=== PATIENT | female | born 2005 | race Caucasian/White ===

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

== ENCOUNTER 2023-08-01 22:12 | Emergency (ER) | payer OTHER ==
[2023-08-01 22:30] VITALS: BP 119/67; PULSE 60; RESP 18; TEMP 98.7; BMI 23.0
[2023-08-01] MEDS ORDERED: ACETAMINOPHEN 500 MG TABLET (FP) PO ONE (23:37)
[2023-08-01] MEDS ORDERED: ACETAMINOPHEN 325 MG TABLET (FP) ONE (23:44)
[2023-08-01 23:48] LABS: URINE APPEARANCE CLEAR; URINE BILIRUBIN NEGATIVE (NEGATIVE); URINE COLOR YELLOW; URINE GLUCOSE (UA) NEGATIVE (NEGATIVE); URINE KETONE NEGATIVE (NEGATIVE); URINE LEUK ESTERASE NEGATIVE (NEGATIVE); URINE NITRITE NEGATIVE (NEGATIVE); URINE PROTEIN NEGATIVE (NEGATIVE)
== END 2023-08-02 02:58 | disposition home or self-care (01) ==
LOC: JER 22:12
DX: R51.9 Headache, unspecified (principal); R55 Syncope and collapse; W01.198A Fall on same level from slipping, tripping and stumbling with subsequent striking against other object, initial encounter; U07.1 COVID-19
CPT/HCPCS: 0241U-QW; 70450-TC; 72125-TC; 81003; 82962; 84703; 87086; 93005; 93010; 99285-25

== ENCOUNTER 2025-03-12 09:53 | Emergency (ER) | payer OTHER ==
[2025-03-12 09:58] VITALS: BP 109/74; PULSE 99; RESP 20; TEMP 98.4; BMI 24.7
[2025-03-12] MEDS ORDERED: ACETAMINOPHEN 325 MG TABLET (FP) ONE (11:19)
[2025-03-12] MEDS ORDERED: DIPHTH,PERTUSS(ACELL),TET 0.5 ML DISP.SYRIN IM ONE (11:19)
[2025-03-12] MEDS: ACETAMINOPHEN 325 MG TABLET (FP) PO ONE (11:32)
[2025-03-12] MEDS: DIPHTH,PERTUSS(ACELL),TET 0.5 ML DISP.SYRIN IM ONE (11:33)
== END 2025-03-12 14:09 | disposition home or self-care (01) ==
LOC: JERFT 09:53
PROC: 0HQFXZZ Repair Right Hand Skin, External Approach (ICD-10-PCS; principal; 2025-03-12)
PROC: 3E0234Z Introduction of Serum, Toxoid and Vaccine into Muscle, Percutaneous Approach (ICD-10-PCS; 2025-03-12)
DX: S61.411A Laceration without foreign body of right hand, initial encounter (principal); Z23 Encounter for immunization; W26.8XXA Contact with other sharp object(s), not elsewhere classified, initial encounter
CPT/HCPCS: 12001-25; 73110-TC-LT-FY; 73110-TC-RT-FY; 73130-TC-LT-FY; 73130-TC-RT-FY; 90471; 90715; 99284-25